=== PATIENT | male | born 1975 | race Caucasian/White ===

== ENCOUNTER 2024-05-13 19:09 | Emergency (ER) | payer MEDICARE, OTHER, SELFPAY ==
[2024-05-13 19:12] VITALS: BP 155/96
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
[2024-05-13 21:05] VITALS: BP 137/91
== END 2024-05-13 21:06 | disposition home or self-care (01) ==
LOC: EMR 19:09
PROVIDERS: EMERGENCY PHYSICIAN Emergency Medicine; FAMILY PHYSICIAN Family Medicine
DX: S89.91XA Unspecified injury of right lower leg, initial encounter (principal); X58.XXXA Exposure to other specified factors, initial encounter; M79.661 Pain in right lower leg; F17.200 Nicotine dependence, unspecified, uncomplicated
CPT/HCPCS: 99283; 73590

== ENCOUNTER → 2025-01-24 08:16 | Outpatient (REF) | payer MEDICARE, OTHER, SELFPAY | LOC: PAVMRI 08:16 | PROVIDERS: ATTENDING PHYSICIAN Specialist; FAMILY PHYSICIAN Family Medicine | DX: M25.561 Pain in right knee (principal) | CPT/HCPCS: 73721 ==